=== PATIENT | male | born 1975 | race Caucasian/White ===

== ENCOUNTER 2016-11-13 15:20 | Outpatient (CLI) | payer MEDICAID ==
[2016-11-13 15:49] LABS: BASOPHILS # (AUTO) 0.1 10^3/uL (0.0-0.1); BASOPHILS % (AUTO) 0.8 %; EOSINOPHILS # (AUTO) 0.2 10^3/uL (0.0-0.7); EOSINOPHILS % (AUTO) 1.7 %; HGB - HEMOGLOBIN 17.5 g/dL (14.0-18.0); LYMPHOCYTES % (AUTO) 28.5 %; MEAN CORPUSCULAR HGB CONC 34.4 g/dL (32.0-36.0); MEAN CORPUSCULAR VOLUME 87.4 fL (80.0-94.0); MEAN PLATELET VOLUME 9.1 fL (7.4-11.4); MONOCYTES # (AUTO) 0.7 10^3/uL (0.0-1.0); MONOCYTES % (AUTO) 6.4 %; NEUTROPHILS # (AUTO) 6.5 10^3/uL (1.5-6.6); NEUTROPHILS % (AUTO) 62.6 %; NUCLEATED RED BLOOD CELLS AUTO 0.2 /100WBC; RED BLOOD COUNT 5.84 10^6/uL (4.70-6.10); RED CELL DISTRIBUTION WIDTH 13.5 % (12.0-15.0); UNCORRECTED WHITE BLOOD COUNT 10.4 x10^3/uL; WHITE BLOOD COUNT 10.4 x10^3/uL (4.8-10.8)
[2016-11-13 15:54] LABS: BILIRUBIN,URINE NEGATIVE (NEGATIVE); UR CULTURE IF IND NOT INDICATED; WBC,URINE 0-3 /HPF (0-3)
[2016-11-13 15:57] LABS: ALBUMIN/GLOBULIN RATIO 1.5 (1.0-2.2); BILIRUBIN,TOTAL 0.8 mg/dL (0.2-1.0); BUN - BLOOD UREA NITROGEN 14 mg/dL (6-20); CALCIUM 9.9 mg/dL (8.5-10.3); CARBON DIOXIDE - CO2 27 mmol/L (21-32); CHLORIDE 102 mmol/L (101-111); CHOL/HDL RATIO 6.1 (<5.0); CHOLESTEROL 227 mg/dL; CREATININE 0.9 mg/dL (0.6-1.2); GFR - MDRD 93 (>89); GLUCOSE 187 mg/dL (70-100); HDL CHOLESTEROL 37 mg/dL; LDL/HDL RATIO 3.5 (<3.6); POTASSIUM 3.9 mmol/L (3.5-5.0); SODIUM 137 mmol/L (135-145); TOTAL PROTEIN 8.4 g/dL (6.7-8.2); TRIGLYCERIDES 293 mg/dL; VLDL CHOLESTEROL 59 mg/dL
== END 2016-11-13 15:21 | disposition home or self-care (01) ==
LOC: LAB 15:20
PROVIDERS: ATTEND Nurse Practitioner Family
DX: E11.9 Type 2 diabetes mellitus without complications (principal); Z13.220 Encounter for screening for lipoid disorders
CPT/HCPCS: 36415; 80053; 80061; 81001; 82043; 82570; 84443; 85025; 87086

== ENCOUNTER 2017-02-12 12:51 | Outpatient (CLI) | payer MEDICAID ==
[2017-02-12 17:53] LABS: HEMOGLOBIN A1C 1.28 g/dL
== END 2017-02-12 12:52 | disposition home or self-care (01) ==
LOC: LAB.F 12:51
PROVIDERS: ATTEND Nurse Practitioner Family
DX: E11.9 Type 2 diabetes mellitus without complications (principal)
CPT/HCPCS: 36415; 83036

== ENCOUNTER 2017-05-26 09:25 | Emergency (ER) | payer MEDICAID ==
[2017-05-26] MEDS ORDERED: IBUPROFEN 400 MG TABLET PO STA (10:17)
[2017-05-26] MEDS ORDERED: MECLIZINE 12.5 MG TABLET PO STA (10:17)
[2017-05-26] MEDS ORDERED: OXYMETAZOLINE NASAL SPRAY NAS STA (10:17)
--- NOTE | 2017-05-26 10:20 | ED Physician Documentation ---
History of Present Illness - Stated complaint Stated Complaint: DIZZY/DIFF BREATHING/HIGH BP - Chief complaint Chief Complaint: Neuro - Additonal information Additional information: hx from pt healthy 41 male sick for about 2 weeks initially had chest pain / upper back ain but that is better continues to cough has TAN and congestion saw PMD and rx zmax for sinusitis not better now feels dizzy/vertigo Review of Systems Constitutional: reports: Fatigue. denies: Fever, Chills Nose: reports: Congestion Cardiac: denies: Chest pain / pressure Respiratory: reports: Cough. denies: Dyspnea GI: denies: Vomiting, Diarrhea Neurologic: reports: Headache, Other (diizy). denies: Focal weakness, Numbness PD PAST MEDICAL HISTORY - Past Medical History Past Medical History: Yes Cardiovascular: Hypertension Endocrine/Autoimmune: Type 2 diabetes, HyPOthyroidism - Past Surgical History Past Surgical History: Yes - Present Medications Home Medications: Ambulatory Orders Medication Instructions Recorded Confirmed Telmisartan [Micardis] 20 mg PO 06/17/13 11/04/14 Aspirin [Aspir 81] 1 tab PO DAILY 11/04/14 11/04/14 Atorvastatin Calcium [Lipitor] 1 tab PO DAILY 11/04/14 11/04/14 Azithromycin [Zithromax] 250 mg PO DAILY #4 tablet 11/04/14 Benzonatate [Tessalon [place]] 100 mg PO Q8H PRN #20 capsule 11/04/14 Levothyroxine Sodium 1 tab PO DAILY 11/04/14 11/04/14 Metformin HCl 1 tab PO BID 11/04/14 11/04/14 guaiFENesin/CODEINE [Robitussin AC] 10 ml PO Q6H PRN #120 ml 11/04/14 Benzonatate [Tessalon] 100 mg PO TID PRN #20 capsule 05/26/17 Carbamide Peroxide Otic Drop 10 drops OT BID #1 bottle 05/26/17 [Debrox Otic Drops] Fluticasone [Flonase] 1 sprays RON BID PRN #1 bottle 05/26/17 Meclizine [Antivert] 25 mg PO Q6H PRN #20 tablet 05/26/17 guaiFENesin/DEXTROMETHORPHAN 10 ml PO Q6H PRN #120 ml 05/26/17 [Robitussin Dm] - Allergies Allergies/Adverse Reactions: Allergies Allergy/AdvReac Type Severity Reaction Status Date / Time No Known Drug Allergies Allergy Verified 11/04/14 01:49 - Social History Does the pt smoke?: Yes Smoking Status: Current every day smoker Does the pt drink ETOH?: No Does the pt have substance abuse?: No - Immunizations Immunizations are current?: Yes - POLST Patient has POLST: No PD ED PE NORMAL - Vitals Vital signs reviewed: Yes - HEENT HEENT: EOMI (nystagmus looking R). No: Ears normal (L TM occluded cerumen, R bening), Moist mucous membranes (stick - he took dayquil [employer]) - Neck Neck: Supple, no meningeal sign - Cardiac Cardiac: RRR - Respiratory Respiratory: No respiratory distress. No: Clear bilaterally (coarse on L) - Abdomen Abdomen: Soft, Non tender - Derm Derm: Normal color - Neuro Neuro: Alert and oriented X 3, conceptor 2-12 intact, No motor deficit, Normal speech Results - Vitals Vitals: Vital Signs - 24 hr 05/26/17 05/26/17 05/26/17 09:37 10:50 12:13 Temperature 36.3 C L Heart Rate 97 87 70 Respiratory 17 18 18 Rate Blood Pressure 173/99 H 167/108 H 148/99 H O2 Saturation 99 95 99 Oxygen O2 Source Room air - EKG (time done) 0933 Rate: Rate (enter#) (94) Rhythm: NSR [place]: Normal Intervals: Normal CO Ischemia: Normal ST segments - Rads (name of study) CXR Radiology: See rad report (NACPD) PD MEDICAL DECISION MAKING - ED course ED course: little better with meds felt OK going home driving Departure - Departure Disposition: 01 Home, Self Care Clinical Impression: Vertigo URI (upper respiratory infection) Qualifiers: URI type: unspecified URI Qualified Code(s): J06.9 - Acute upper respiratory infection, unspecified Condition: Good Instructions: ED Upper Resp Infec No Abx Tx, ED Vertigo Unspecified Follow-Up: Darby Guzman ARNP [Primary Care Provider] - Prescriptions: Benzonatate [Tessalon] 100 mg PO TID PRN #20 capsule PRN Reason: to ease cough Carbamide Peroxide Otic Drop [Debrox Otic Drops] 10 drops OT BID #1 bottle Fluticasone [Flonase] 1 sprays RON BID PRN #1 bottle PRN Reason: allergies guaiFENesin/DEXTROMETHORPHAN [Robitussin Dm] 10 ml PO Q6H PRN #120 ml PRN Reason: Cough Meclizine [Antivert] 25 mg PO Q6H PRN #20 tablet PRN Reason: Dizziness Comments: The xray looks fine no pneumonia As we discussed I think the dizziness is from your inner ear - this usually resolved on it's own but the medication I gave you should help until then Please rest Stay home from work and don't drive for the next 2 days or until the dizziness is better Also use the ear drops to dissolve the ear wax Forms: Activity restrictions Discharge Date/Time: 05/26/17 13:00
--- NOTE | 2017-05-26 10:47 | XRAY Preliminary Report ---
Exam: XR CHEST 2 VIEW X-RAY IMPRESSION: Negative for acute cardiopulmonary process or pneumonia. [facility] SITE ID: [id number]
--- NOTE | 2017-05-26 10:48 | XRAY Report ---
EXAM: CHEST RADIOGRAPHY EXAM DATE: 05/26/2017 10:32 AM. CLINICAL HISTORY: Cough, congested dizzy. COMPARISON: 11/04/2014. TECHNIQUE: 2 views. FINDINGS: Lungs/Pleura: The prior right mid lung zone patchy opacity is no longer seen. No focal opacities evid ent. No pleural effusion. No pneumothorax. The slightly elevated right hemidiaphragm is stable appear ance. Mediastinum: Heart and mediastinal contours are unremarkable. IMPRESSION: Negative for acute cardiopulmonary process or pneumonia. [facility] Referring Provider Line: [phone] SITE ID: [id number]
[2017-05-26 12:14] VITALS: BP 148/99
== END 2017-05-26 13:00 | disposition home or self-care (01) ==
LOC: ED 09:25
DX: R42 Dizziness and giddiness (principal); J06.9 Acute upper respiratory infection, unspecified; I10 Essential (primary) hypertension; E11.9 Type 2 diabetes mellitus without complications; Z79.84 Long term (current) use of oral hypoglycemic drugs; E03.9 Hypothyroidism, unspecified; Z79.82 Long term (current) use of aspirin; F17.200 Nicotine dependence, unspecified, uncomplicated
CPT/HCPCS: 71046; 93005; 99283; A9270

== ENCOUNTER 2017-06-04 14:09 | Outpatient (CLI) | payer MEDICAID ==
[2017-06-04 19:34] LABS: HEMOGLOBIN A1C 1.52 g/dL; HEMOGLOBIN A1C % 9.1 % (4.6-6.2)
== END 2017-06-04 14:10 | disposition home or self-care (01) ==
LOC: LAB.N 14:09
PROVIDERS: ATTEND Nurse Practitioner Family
DX: I10 Essential (primary) hypertension (principal); E11.9 Type 2 diabetes mellitus without complications
CPT/HCPCS: 36415; 83036; 84132; 84443

== ENCOUNTER 2017-06-05 12:57 | Outpatient (CLI) | payer MEDICAID | END 2017-06-05 12:58 | disposition home or self-care (01) | LOC: LAB.F 12:57 | PROVIDERS: ATTEND Nurse Practitioner Family | DX: Z53.9 Procedure and treatment not carried out, unspecified reason (principal); E03.9 Hypothyroidism, unspecified; I10 Essential (primary) hypertension | CPT/HCPCS: 36415; 84132; 84443 ==

== ENCOUNTER 2017-10-05 16:27 | Emergency (ER) | payer MEDICAID ==
[2017-10-05 16:42] VITALS: BP 147/93
--- NOTE | 2017-10-05 17:19 | ED Physician Documentation ---
History of Present Illness - Stated complaint Stated Complaint: COUGH - Chief complaint Chief Complaint: Resp - Additonal information Additional information: hx from pt 42 male HTN sleep apnea DM cough for a week getting worse exposed to pna no travel myalgias no leg swelling Review of Systems Constitutional: reports: Myalgias, Fatigue. denies: Fever Respiratory: reports: Dyspnea, Cough Musculoskeletal: denies: Extremity swelling Endocrine: denies: Easy bruising / bleeding Immunocompromised: denies: Immunocompromised PD PAST MEDICAL HISTORY - Past Medical History Past Medical History: Yes Cardiovascular: Hypertension Endocrine/Autoimmune: Type 2 diabetes, HyPOthyroidism - Past Surgical History Past Surgical History: Yes - Present Medications Home Medications: Ambulatory Orders Medication Instructions Recorded Confirmed Levothyroxine Sodium 1 tab PO DAILY 11/04/14 11/04/14 Metformin HCl 1 tab PO BID 11/04/14 11/04/14 Benzonatate [Tessalon] 100 mg PO TID PRN #20 capsule 10/05/17 Loratadine [Claritin] 10/05/17 Losartan Potassium 100 mg 10/05/17 guaiFENesin/DEXTROMETHORPHAN 10 ml PO Q6H PRN #120 ml 10/05/17 [Robitussin Dm] hydroCHLOROthiazide 10/05/17 [Hydrochlorothiazide] - Allergies Allergies/Adverse Reactions: Allergies Allergy/AdvReac Type Severity Reaction Status Date / Time No Known Drug Allergies Allergy Verified 11/04/14 01:49 - Social History Does the pt smoke?: Yes Smoking Status: Current every day smoker Does the pt drink ETOH?: No Does the pt have substance abuse?: No - Immunizations Immunizations are current?: Yes - POLST Patient has POLST: No PD ED PE NORMAL - Vitals Vital signs reviewed: Yes - Cardiac Cardiac: RRR - Respiratory Respiratory: No respiratory distress, Clear bilaterally, Other (dec bilaterally) - Abdomen Abdomen: Soft, Non tender - Extremities Extremities: No deformity, Normal ROM s pain, No edema, No calf tenderness / cord - Neuro Neuro: Alert and oriented X 3 Results - Vitals Vitals: Vital Signs - 24 hr 10/05/17 16:37 Temperature 36.3 C L Heart Rate 93 Respiratory 20 Rate Blood Pressure 147/93 H O2 Saturation 98 Oxygen O2 Source Room air - Rads (name of study) CXR Radiology: See rad report (neg) PD MEDICAL DECISION MAKING - Sepsis Event Vital Signs: Vital Signs - 24 hr 10/05/17 16:37 Temperature 36.3 C L Heart Rate 93 Respiratory 20 Rate Blood Pressure 147/93 H O2 Saturation 98 Oxygen O2 Source Room air Departure - Departure Disposition: 01 Home, Self Care Clinical Impression: Bronchitis Condition: Good Instructions: ED Upper Resp Infec No Abx Tx Prescriptions: Benzonatate [Tessalon] 100 mg PO TID PRN #20 capsule PRN Reason: to ease cough guaiFENesin/DEXTROMETHORPHAN [Robitussin Dm] 10 ml PO Q6H PRN #120 ml PRN Reason: Cough Comments: The xray did not show pneumonia. So this is likely a viral infection such as bronchitis Antibiotics wont help but I did prescribe medications to ease your cough And a note for work Forms: Activity restrictions
--- NOTE | 2017-10-05 18:12 | XRAY Report ---
Procedure Date: 10/05/2017 Accession Number: [id number] / [id number] Procedure: XR - Chest 2 View X-Ray CPT Code: 37338 FULL RESULT: EXAM: CHEST RADIOGRAPHY EXAM DATE: 10/05/2017 05:47 PM. CLINICAL HISTORY: Cough. COMPARISON: None. TECHNIQUE: 2 views. FINDINGS: Lungs/Pleura: No focal opacities evident. No pleural effusion. No pneumothorax. Normal volumes. Mediastinum: Heart and mediastinal contours are unremarkable. Other: None. IMPRESSION: No acute intrathoracic plain film abnormality. [facility]
== END 2017-10-05 18:26 | disposition home or self-care (01) ==
LOC: ED 16:27
DX: J40 Bronchitis, not specified as acute or chronic (principal); F17.200 Nicotine dependence, unspecified, uncomplicated; I10 Essential (primary) hypertension; E11.9 Type 2 diabetes mellitus without complications; Z79.84 Long term (current) use of oral hypoglycemic drugs
CPT/HCPCS: 71046; 99283

== ENCOUNTER 2017-10-11 17:02 | Emergency (ER) | END 2017-10-11 19:11 | disposition home or self-care (01) | CPT/HCPCS: 71046; 94640; 94664; 99283; 99284; A9270; J7512 ==